=== PATIENT | male | born 1945 | race Caucasian/White ===

== ENCOUNTER → 2023-03-12 | Outpatient (CLI) | payer MEDICARE ==
[~2023-03-12] MED LIST: Aspir 8181 MG; GABA300; IBUP800; SIMV40; VALS80
[2023-03-12 16:27] LABS: BASOPHILS ABSOLUTE AUTO 0.06 K/mm3 (0.00-0.23); BASOPHILS PERCENT AUTO 1 % (0-2); EOSINOPHILS ABSOLUTE AUTO 0.03 K/mm3 (0.00-0.68); EOSINOPHILS PERCENT AUTO 0 % (0-6); Hematocrit 39.5 % (37.0-53.0); Hemoglobin 12.9 g/dL (13.5-17.5); IMMATURE GRAN ABSOLUTE AUTO 0.02 K/mm3 (0.00-0.10); IMMATURE GRAN PERCENT AUTO 0 % (0-1); LYMPHOCYTES ABSOLUTE AUTO 1.23 K/mm3 (0.84-5.20); LYMPHOCYTES PERCENT AUTO 16 % (21-46); MONOCYTES ABSOLUTE AUTO 0.57 K/mm3 (0.16-1.47); MONOCYTES PERCENT AUTO 7 % (4-13); Mean Corpuscular HGB 29.3 pg (26.0-34.0); Mean Corpuscular HGB Conc 32.7 g/dL (31.5-36.5); Mean Corpuscular Volume 90 fL (80-100); Mean Platelet Volume 10.5 fL (9.1-12.4); NEUTROPHILS PERCENT AUTO 76 % (41-73); Platelet Count 250 K/mm3 (150-400); RDW Coefficient Variation 13.6 % (11.7-14.2); RDW Standard Deviation 44.6 fL (35.1-46.3); Red Blood Cell Count 4.41 M/mm3 (4.30-5.90); White Blood Cell Count 7.81 K/mm3 (4.00-11.30)
[2023-03-12 16:43] LABS: Percent Saturation 25.3 % (20.0-50.0); Thyroxine (T4) 7.8 ug/dL (4.5-12.1)
[2023-03-12 17:01] LABS: Albumin, Blood 4.1 g/dL (3.4-5.0); Albumin/Globulin Ratio 1.4 (0.8-1.8); Bilirubin, Total 0.8 mg/dL (0.1-1.0); Bun/Creatinine Ratio 22.6 (12.0-20.0); Calcium, Blood 8.6 mg/dL (8.5-10.1); Creatinine, Blood 0.8 mg/dL (0.60-1.20); Globulin, Blood 2.9 g/dL (2.2-4.0); Phosphorus, Blood 2.5 mg/dL (2.5-4.9); Potassium, Blood 4.1 mmol/L (3.5-5.5); Thyroid Stimulating Hormone 0.988 uIU/mL (0.360-4.800)
== END ==
LOC: LAB SHORT 13:55
PROVIDERS: Internal Medicine Hematology & Oncology
DX: G35 Multiple sclerosis (principal); R53.83 Other fatigue; E53.8 Deficiency of other specified B group vitamins; R51.9 Headache, unspecified; H53.2 Diplopia; D64.9 Anemia, unspecified
CPT/HCPCS: 80053; 82607; 82728; 82746; 83540; 83550; 84100; 84436; 84443; 85025

== ENCOUNTER 2024-07-30 19:46 | Inpatient (IN) | payer MEDICARE ==
[~2024-07-30] VITALS: Ht 177.8 cm; Wt 80.0 kg
[2024-07-30 20:36] LABS: BASOPHILS ABSOLUTE AUTO 0.03 K/mm3 (0.00-0.23); BASOPHILS PERCENT AUTO 0 % (0-2); EOSINOPHILS ABSOLUTE AUTO 0.13 K/mm3 (0.00-0.68); EOSINOPHILS PERCENT AUTO 2 % (0-6); Hematocrit 39.1 % (37.0-53.0); Hemoglobin 12.8 g/dL (13.5-17.5); IMMATURE GRAN ABSOLUTE AUTO 0.02 K/mm3 (0.00-0.10); IMMATURE GRAN PERCENT AUTO 0 % (0-1); LYMPHOCYTES ABSOLUTE AUTO 1.11 K/mm3 (0.84-5.20); LYMPHOCYTES PERCENT AUTO 16 % (21-46); MONOCYTES ABSOLUTE AUTO 0.48 K/mm3 (0.16-1.47); MONOCYTES PERCENT AUTO 7 % (4-13); Mean Corpuscular HGB 29.9 pg (26.0-34.0); Mean Corpuscular HGB Conc 32.7 g/dL (31.5-36.5); Mean Corpuscular Volume 91 fL (80-100); Mean Platelet Volume 9.8 fL (9.1-12.4); NEUTROPHILS ABSOLUTE AUTO 5.03 K/mm3 (1.96-9.15); NEUTROPHILS PERCENT AUTO 74 % (41-73); Platelet Count 222 K/mm3 (150-400); RDW Coefficient Variation 13.5 % (11.7-14.2); RDW Standard Deviation 45.6 fL (35.1-46.3); Red Blood Cell Count 4.28 M/mm3 (4.30-5.90)
[2024-07-30 20:38] LABS: Source, Urine Clean Catch
[2024-07-30 20:41] LABS: Bilirubin, Urine Neg (Neg); Blood, Urine Neg (Neg); Glucose Qualitative, Urine Neg (Neg); Ketones, Urine Neg (Neg); Leukocyte Esterase, Urine Neg (Neg); Nitrite, Urine Neg (Neg); Protein, Urine Neg (Neg); Specific Gravity, Urine 1.005 (1.003-1.022); Urobilinogen, Urine NORM (Normal)
[2024-07-30 20:51] LABS: Appearance, Urine Clear (Clear); Color, Urine Yellow (P-Yellow)
[2024-07-30 20:52] LABS: International Normalized Ratio 0.97; Prothrombin Time Results 10.4 Sec (9.7-11.5)
[2024-07-30 20:59] LABS: Ethanol (Alcohol), Blood, Med <3 mg/dL
[2024-07-30 21:01] LABS: Alanine Aminotransfer (ALT/SGP 26 U/L (12-78); Albumin, Blood 3.4 g/dL (3.4-5.0); Alk Phos 145 U/L (50-136); Anion Gap 7 mmol/L (3-11); Aspartate Aminotrans (AST/SGOT 19 U/L (12-37); Bilirubin, Total 0.4 mg/dL (0.1-1.0); Blood Urea Nitrogen 17 mg/dL (8-24); Bun/Creatinine Ratio 12.7 (12.0-20.0); CO2, Blood 31 mmol/L (21-32); Calcium, Blood 8.6 mg/dL (8.5-10.1); Chloride, Blood 104 mmol/L (98-108); Creatinine, Blood 1.34 mg/dL (0.60-1.20); Globulin, Blood 3.4 g/dL (2.2-4.0); Glomerular Filtration Rate 54 (60-); Glucose, Blood 108 mg/dL (70-99); Potassium, Blood 4.2 mmol/L (3.5-5.5); Sodium, Blood 138 mmol/L (136-145); Total Protein, Blood 6.8 g/dL (6.4-8.2)
[2024-07-30 23:57] VITALS: BP 148/75
[2024-07-31] MEDS ORDERED: GABA100 PO (00:06)
[2024-07-31] MEDS ORDERED: CARBATROL300 M1 PO (00:14)
[2024-07-31] MEDS ORDERED: NS 1,000 ML IV SCH (01:00)
[2024-07-31] MEDS ORDERED: Ondansetron HCl 2 MG / ML 2ML Vial IV PRN (01:00)
[2024-07-31] MEDS ORDERED: FLU VACC TS2024-25(6MOS UP)/PF 45 MCG/0.5 ML SYRINGE IM ONE (01:00)
[2024-07-31] MEDS ORDERED: Clopidogrel Bisulfate 75 MG Tab PO SCH (01:00)
[2024-07-31] MEDS ORDERED: Aspirin 81 MG Chew PO SCH (02:00)
--- NOTE | 2024-07-31 02:43 | NUR ---
PT ADMITTED FROM ED AFTER FAMILY NOTICED INCREASED WEAKNESS IN RIGHT EXTREMS AND INCREASED CONFUSION. PT ORIENTED TO SELF AND . PT ANXIOUS, PULLING AT IV, CLOTH'S, AND TRYING TO GET OOB. PT STATES THAT HE LIVES WITH MOM AND DAD, FAMILY IS THE [employer]. PT INCONTINENT, AND STATING HE HAS TO PEE FREQUENTLY, BLADDER SCAN DONE AND WAS 379ML'S AFTER INCONTINENT VOID X2. PT THEN VOIDED WITH ASSIST 175ML'S. PT PLACED IN RESTRAINTS D/T INTERFERING WITH CARES, AND MEDICAL EQUIPMENT. PT IS NOT SAFE TO BE UP WITHOUT ASSIST, AND SON STATES HE HAS FALLEN 5-6 TIMES IN PAST WEEK. CONSULT CALLED TO PALLATIVE CARE, AWAITING MRI, ECHO, AND PT EVAL.
[2024-07-31 04:31] LABS: U Amphetamine Screen Not Detected; U Barbituate Screen Not Detected; U Benzodiazapine Screen Not Detected; U Buprenorphine Screen Not Detected; U Cannabinoids Screen Not Detected; U Cocaine Screen Not Detected; U Methadone Screen Not Detected; U Methamphetamine Screen Not Detected; U Opiates Screen Not Detected; U Oxycodone Screen Not Detected; U Phencyclidine Screen Not Detected
[2024-07-31 05:30] LABS: BASOPHILS ABSOLUTE AUTO 0.03 K/mm3 (0.00-0.23); BASOPHILS PERCENT AUTO 1 % (0-2); EOSINOPHILS ABSOLUTE AUTO 0.07 K/mm3 (0.00-0.68); EOSINOPHILS PERCENT AUTO 1 % (0-6); Hematocrit 38.7 % (37.0-53.0); Hemoglobin 12.7 g/dL (13.5-17.5); IMMATURE GRAN ABSOLUTE AUTO 0.02 K/mm3 (0.00-0.10); IMMATURE GRAN PERCENT AUTO 0 % (0-1); LYMPHOCYTES ABSOLUTE AUTO 1.04 K/mm3 (0.84-5.20); LYMPHOCYTES PERCENT AUTO 18 % (21-46); MONOCYTES ABSOLUTE AUTO 0.47 K/mm3 (0.16-1.47); MONOCYTES PERCENT AUTO 8 % (4-13); Mean Corpuscular HGB Conc 32.8 g/dL (31.5-36.5); Mean Corpuscular Volume 92 fL (80-100); NEUTROPHILS ABSOLUTE AUTO 4.21 K/mm3 (1.96-9.15); NEUTROPHILS PERCENT AUTO 72 % (41-73); Platelet Count 217 K/mm3 (150-400); RDW Coefficient Variation 13.4 % (11.7-14.2); RDW Standard Deviation 45.2 fL (35.1-46.3); Red Blood Cell Count 4.23 M/mm3 (4.30-5.90); White Blood Cell Count 5.84 K/mm3 (4.00-11.30)
[2024-07-31 06:10] LABS: Albumin, Blood 3.3 g/dL (3.4-5.0); Bilirubin, Total 0.4 mg/dL (0.1-1.0); Bun/Creatinine Ratio 15.7 (12.0-20.0); Calcium, Blood 8.8 mg/dL (8.5-10.1); Creatinine, Blood 1.08 mg/dL (0.60-1.20); Globulin, Blood 3.4 g/dL (2.2-4.0); Potassium, Blood 3.9 mmol/L (3.5-5.5); Total Protein, Blood 6.7 g/dL (6.4-8.2)
[2024-07-31 07:23] VITALS: BP 141/74
[2024-07-31] MEDS ORDERED: Gabapentin 400 MG Cap PO SCH (09:00)
[2024-07-31] MEDS ORDERED: Enoxaparin 40 MG/0.4 ML SYR SC SCH (09:00)
--- NOTE | 2024-07-31 09:17 | NUR ---
SPOKE WITH PT'S SONTREVOR VIA PHONE THIS MORNING. MRI SCREENING FORM REVIEWED AND COMPLETED BY THIS PC RN. PRIMARY RN TO FAX MRI SCREENING FORM TO IMAGING. PT HAD A HEAD MRI IN SEP OF THIS YEAR. SON REPORTS PT HAS MS AND DENIES HX OF STROKE. HE STATES PT'S LEFT SIDED WEAKNESS IS D/T MS. PT SUFFERS FROM SHOOTING NERVE PAIN FROM HIS LEGS UP HIS SPINE. NERVE PAIN IS BEING TX WITH GABAPENTIN. GABAPENTIN RX DOSE RECENTLY INCREASED FROM 300 MG BID TO 400 MG BID. SON REPORTS MILD IMPROVEMENT WITH DOSE INCREASE. AT BASE LINE PT EATS A REGULAR TEXTURE DIET WITH THIN LIQUIDS W/O DIFFICULTY. PRIMARY RN REPORTS PT WAS ABLE TO TAKE ORAL MEDICATIONS WITH WATER THIS MORNING. PROVIDER TO PLACE DIET ORDER. CODE STATUS: SON STATES, "HE WOULD NOT WANT SOMEONE PUSHING ON HIS CHEST. HE DOESN'T WANT BROKEN RIBS. AND HE WOULDN'T WANT TO BE ON A MACHINE." PROVIDER TO PLACE DNR ORDER. PRIMARY RN REPORTS PT HAS PULLED OUT IV'S AND TRYING TO GET OUT OF BED. HE WAS PLACED IN SOFT WRIST RESTRAINTS AND MITTENS OVER NIGHT. THIS PC RN ENCOURAGED SON TO COME SEE PT AT BEDSIDE IN AN ATTEMPT TO RE-ORIENT AND RE-DIRECT JYOTI. PT IS ALERT AND ORIENTED TO SELF ONLY. HE KNOWS HIS NAME, NOT HIS . FUTURE GOALS OF CARE CONVERSATION ANTICIPATED AFTER DIAGNOSTIC STUDIES COMPLETED. DR. KEARNEY REPORTS SHE WILL REVIEW PT'S [facility] CHART FOR MEDICAL HX. PRIMARY RN UPDATED. PHONE NUMBER FOR SONTREVOR IS [phone]. COMMUNICATION IS GOING THROUGH BOTH SONS PT'S SPOUSE HAS DEMENTIA.
[2024-07-31] MEDS ORDERED: NS 250 ML IV PRN (13:30)
[2024-07-31 17:40] VITALS: BP 125/59
--- NOTE | 2024-07-31 18:06 | NUR ---
SHIFT SUMMARY PT CONT LEVEL OF CARE. PT NOTED TO BE A&O TO SELF AND FAMILY THIS SHIFT. PT NOTED TO SLEEP ALMOST THE ENTIRE SHIFT PT DIDNT SLEEP AT ALL LAST NIGHT. PT WAS TAKEN OUT OF RESTRAINTS TO EAT THIS SHIFT WHILE FAMILY WAS PRESENT IN ROOM AND TO BE TAKEN DOWN TO MRI WITH NO ATTEMPTS TO PULL AT LINES. PT NOTED TO BE REDIRECTABLE THIS SHIFT AND FOLLOW COMMANDS. OLVERA CONT TO REMAIN PATENT AND DRAINING YELLOW URINE.
[2024-07-31 19:47] VITALS: BP 113/64
[2024-08-01 03:11] VITALS: BP 133/68
--- NOTE | 2024-08-01 04:21 | NUR ---
SHIFT SUMMARY PT IS ALERT AND ORIENTED TO SELF AND FAMILY. NO ACUTE CHANGED THROUGHOUT THIS SHIFT. PT ABLE TO SLEEP THROUGHOUT THE SOME OF THE NIGHT. SOFT RESTRAINTS IN PLACE D/T PULLING AT LINES AND CORDS DESPITE VERBAL REMINDERS TO NOT PULL ON THE LINES/CORDS. OLVERA IN PLACE DRAINING CLEAR, YELLOW URINE. ON RA. ON TELE RUNNING NORMAL SINUS RYTHYM IN THE 'S.
[2024-08-01 05:40] LABS: BASOPHILS ABSOLUTE AUTO 0.04 K/mm3 (0.00-0.23); BASOPHILS PERCENT AUTO 1 % (0-2); EOSINOPHILS ABSOLUTE AUTO 0.09 K/mm3 (0.00-0.68); EOSINOPHILS PERCENT AUTO 1 % (0-6); Hematocrit 38.6 % (37.0-53.0); Hemoglobin 12.7 g/dL (13.5-17.5); IMMATURE GRAN ABSOLUTE AUTO 0.03 K/mm3 (0.00-0.10); IMMATURE GRAN PERCENT AUTO 0 % (0-1); LYMPHOCYTES ABSOLUTE AUTO 0.98 K/mm3 (0.84-5.20); LYMPHOCYTES PERCENT AUTO 13 % (21-46); MONOCYTES ABSOLUTE AUTO 0.56 K/mm3 (0.16-1.47); MONOCYTES PERCENT AUTO 7 % (4-13); Mean Corpuscular HGB 29.7 pg (26.0-34.0); Mean Corpuscular HGB Conc 32.9 g/dL (31.5-36.5); Mean Corpuscular Volume 90 fL (80-100); Mean Platelet Volume 9.6 fL (9.1-12.4); NEUTROPHILS ABSOLUTE AUTO 5.89 K/mm3 (1.96-9.15); NEUTROPHILS PERCENT AUTO 78 % (41-73); Platelet Count 210 K/mm3 (150-400); RDW Coefficient Variation 13.3 % (11.7-14.2); RDW Standard Deviation 43.9 fL (35.1-46.3); Red Blood Cell Count 4.27 M/mm3 (4.30-5.90); White Blood Cell Count 7.59 K/mm3 (4.00-11.30)
[2024-08-01] MEDS ORDERED: Pantoprazole Sodium 40 MG Tab PO SCH (06:00)
[2024-08-01 06:13] LABS: Anion Gap 10 mmol/L (3-11); Blood Urea Nitrogen 10 mg/dL (8-24); Bun/Creatinine Ratio 13.9 (12.0-20.0); CHOL/HDL RATIO 3.6; CO2, Blood 26 mmol/L (21-32); Calcium, Blood 8.6 mg/dL (8.5-10.1); Chloride, Blood 103 mmol/L (98-108); Cholesterol 212 mg/dL (50-200); Creatinine, Blood 0.72 mg/dL (0.60-1.20); Glomerular Filtration Rate 94 (60-); Glucose, Blood 95 mg/dL (70-99); HDL Cholesterol 59 mg/dL (>39); LDL/HDL RATIO 2.3; Low Density Lipoprotein Chol 135 mg/dL (0-110); Sodium, Blood 135 mmol/L (136-145); Triglycerides 88 mg/dL (30-160); Very Low Density Lipoprot Chol 17 mg/dL (6-32)
[2024-08-01 07:33] VITALS: BP 133/74
--- NOTE | 2024-08-01 11:26 | NUR ---
CATH DC PER PHYSICIAN REMOVED OLVERA AT 1125.
[2024-08-01 15:14] VITALS: BP 123/67
--- NOTE | 2024-08-01 17:54 | NUR ---
SHIFT SUMMARY PT CONT LEVEL OF CARE. PT NOTED TO BE MORE ALERT THIS SHIFT WAS A&OX3 LATER ON IN THE SHIFT. RESTRAINTS AND OLVERA WERE DC. PT NOTED TO BE INCONT OF BLADDER THIS SHIFT AND REDIRECTABLE. PT WORKED WITH THERAPY THIS SHIFT WHOM STATED PT CAN BE ASSIST X1 WITH FWW FOR TRANSFERES TO CHAIR AND RESTROOM.
[2024-08-01 20:19] VITALS: BP 129/88
[2024-08-02 04:22] VITALS: BP 141/78
--- NOTE | 2024-08-02 04:27 | NUR ---
SHIFT SUMMARY PT IS A/O TO SELF, PERSON, AND CURRENT SITUATION. NO ACUTE CHANGES THROUGHOUT THIS SHIFT. PT IS IMPULISVE AND WILL ATTEMPT TO GET OUT OF BED, BED ALARM REMAINS ON. PT IS CONTNENT/INCONTNENT OF BOWELS AND BLADDER, WILL OCCASIONALLY USE THE URINAL. PT FREQUENTLY ATTEMPTS TO PULL AT LINES/CORDS, GOWN, ATTENDS. PT IS A 1 PERSON ASSIST WITH FWW AND GAIT BELT TO THE CHAIR. MEDS WHOLE IN APPLESAUCE.
[2024-08-02 07:36] VITALS: BP 124/69
[2024-08-02] MEDS ORDERED: Atorvastatin 40 MG Tab PO SCH (09:00)
[2024-08-02 09:24] LABS: BASOPHILS ABSOLUTE AUTO 0.04 K/mm3 (0.00-0.23); BASOPHILS PERCENT AUTO 1 % (0-2); EOSINOPHILS ABSOLUTE AUTO 0.11 K/mm3 (0.00-0.68); EOSINOPHILS PERCENT AUTO 2 % (0-6); Hematocrit 39.7 % (37.0-53.0); Hemoglobin 13.5 g/dL (13.5-17.5); IMMATURE GRAN ABSOLUTE AUTO 0.01 K/mm3 (0.00-0.10); IMMATURE GRAN PERCENT AUTO 0 % (0-1); LYMPHOCYTES ABSOLUTE AUTO 0.99 K/mm3 (0.84-5.20); LYMPHOCYTES PERCENT AUTO 17 % (21-46); MONOCYTES ABSOLUTE AUTO 0.51 K/mm3 (0.16-1.47); MONOCYTES PERCENT AUTO 9 % (4-13); Mean Corpuscular HGB 29.8 pg (26.0-34.0); Mean Corpuscular Volume 88 fL (80-100); Mean Platelet Volume 9.3 fL (9.1-12.4); NEUTROPHILS ABSOLUTE AUTO 4.25 K/mm3 (1.96-9.15); NEUTROPHILS PERCENT AUTO 72 % (41-73); Platelet Count 231 K/mm3 (150-400); RDW Coefficient Variation 13.1 % (11.7-14.2); RDW Standard Deviation 42.4 fL (35.1-46.3); Red Blood Cell Count 4.53 M/mm3 (4.30-5.90); White Blood Cell Count 5.91 K/mm3 (4.00-11.30)
[2024-08-02 09:49] LABS: Bun/Creatinine Ratio 15.2 (12.0-20.0); Calcium, Blood 8.8 mg/dL (8.5-10.1); Creatinine, Blood 0.79 mg/dL (0.60-1.20)
[2024-08-02 15:10] VITALS: BP 145/70
--- NOTE | 2024-08-02 19:10 | NUR ---
SHIFT SUMMARY PATIENT A/OX2. MENTATION IS IMPROVING. FAMILY WAS AT BEDSIDE T/O MOST OF THE DAY. TELEMETRY WAS D/C'D. PLAN TO SEND TO SNF FOR MORE THERAPY PRIOR TO GOING HOME. CASE MANAGEMENT FOLLOWING. UP TO CHAIR FOR DINNER FOR ABOUT 3 HOURS PRIOR TO GETTING BACK IN BED. CONT/INCONT.
[2024-08-02 20:03] VITALS: BP 120/73
[2024-08-03] MEDS ORDERED: Melatonin 5 MG Tablet PO SCH (00:25)
--- NOTE | 2024-08-03 04:37 | NUR ---
NOC SUMMARY- PT HAS RESTED FOR MOST OF SHIFT. PT BRIEF CHANGED NEEDED. PT REPOSITIONED Q2. PT HAS NO COMPLAINTS. CALL LIGHT IN REACH AND BED ALARM ON.
[2024-08-03 07:25] VITALS: BP 130/77
[2024-08-03 15:02] VITALS: BP 127/67
[2024-08-03] MEDS ORDERED: QUEtiapine Fumarate 50 MG TAB PO ONE (16:00)
--- NOTE | 2024-08-03 16:25 | NUR ---
PATIENT INCREASINGLY AGITATED. CALL TO DR. KEARNEY REQUESTING SOMETHIN TO HELP WITH HIS ANXIETY/SUNDOWNING. ONE-TIME ORDER FOR QUETIAPINE 50MG ADMINISTERED PER DR. KEARNEY.
--- NOTE | 2024-08-03 18:24 | NUR ---
END OF SHIFT SUMMARY: A&Ox1-2; KNOWS FAMILY BY FACE AND RELATION BUT UNABLE TO REMEMBER NAMES.. PLEASANT AND COOPERATIVE WITH CARE THIS MORNING, BUT BECAME INCREASINGLY AGITATED THROUGHOUT THE DAY, SETTING OFF THE BED ALARM MULTIPLE TIMES, STATING, I GOTTA MOVE. I M GETTING OUT OF HERE . CALL TO DR KEARNEY; ONE-TIME ORDER FOR QUETIAPINE 50MG PO WHICH SEEMED TO RELAX HIM FOR ABOUT TWO HOURS, BUT HE HAS BECOME INCREASINGLY AGITATED AGAIN STARTING AROUND 1730.. DOES NOT UTILIZE CALL LIGHT. 1PA c FWW; WALKED WITH PT TODAY. INCONTINENT x2. TOOK MEDS WHOLE WITH FLUIDS. MULTIPLE FAMILY MEMBERS IN TODAY. PT RECOMMENDING SNF; NO ACCEPTING FACILITY AT THIS TIME. BED IN LOWEST POSITION, CALL LIGHT WITHIN REACH, ALL NEEDS MET. REPORT TO ONCOMING NURSE.
--- NOTE | 2024-08-03 18:39 | NUR ---
PATIENT CONTIUES TO TRY AND GET OUT OF BED STATING, "I GOTTA GO". THIS RN HAS BEEN IN HIS ROOM MULTIPLE TIMES IN THE LAST THIRTY MINUTES TRYING TO REDIRECT. CHARGE NOTIFIED THAT 1:1 SITTER MAY BE NEEDED FOR PATIENT SAFETY.
[2024-08-03 19:10] VITALS: BP 114/63
[2024-08-04 07:21] VITALS: BP 143/72
[2024-08-04 12:00] LABS: CORONAVIRUS COVID-19 AG Negative (NEGATIVE); INFLUENZA A AG Negative (NEGATIVE); INFLUENZA B AG Negative (NEGATIVE)
[2024-08-04] MEDS ORDERED: CLOP75 PO (12:06)
[2024-08-04] MEDS ORDERED: ASPI81CH PO (12:06)
[2024-08-04] MEDS ORDERED: ATOR80 PO (12:06)
[2024-08-04] MEDS ORDERED: MELATONIN5 M1 PO (12:07)
[2024-08-04] MEDS ORDERED: PANT40 PO (12:09)
--- NOTE | 2024-08-04 12:35 | NUR ---
ATTEMPTED TO GIVE REPORT TO BASIL GEORGE DIGESTER, NO ANSWER, ASKED FOR A RETURN PHONE CALL
--- NOTE | 2024-08-04 14:25 | NUR ---
pt discharged to [facility]. report given to rn. family at bedside for discharge
== END 2024-08-04 13:37 | DRG 69 ==
LOC: ER 19:46 → MEDS 22:31
PROVIDERS: Family Medicine; Student in an Organized Health Care Education/Training Program; ADMIT Internal Medicine
DX: G45.9 Transient cerebral ischemic attack, unspecified (principal); I69.954 Hemiplegia and hemiparesis following unspecified cerebrovascular disease affecting left non-dominant side; N17.9 Acute kidney failure, unspecified; G93.49 Other encephalopathy; G35 Multiple sclerosis; E78.5 Hyperlipidemia, unspecified; I10 Essential (primary) hypertension; Z79.82 Long term (current) use of aspirin; E86.0 Dehydration; Z87.81 Personal history of (healed) traumatic fracture; Z87.891 Personal history of nicotine dependence
CPT/HCPCS: 36415; 70450; 70496; 70498; 70551; 71045; 80048; 80053; 80061; 80320; 81003; 85025; 85610; 85730; 87428-QW; 93005; 93010; 93306; 97110; 97116; 97161; 97530; 99285-25; A9270; J1650; J7030; Q9967

== ENCOUNTER 2024-08-27 12:50 | Inpatient (IN) | payer MEDICARE ==
[~2024-08-27] VITALS: Ht 177.8 cm; Wt 79.7 kg
[~2024-08-27 12:50] MED LIST changes: +ASPI81CH PO; +ATOR80 PO; +CARBATROL300 M1 PO; +CLOP75 PO; +GABA100 PO; +MELATONIN5 M1 PO; +PANT40 PO
[2024-08-27 14:25] LABS: BASOPHILS ABSOLUTE AUTO 0.02 K/mm3 (0.00-0.23); BASOPHILS PERCENT AUTO 0 % (0-2); EOSINOPHILS ABSOLUTE AUTO 0.01 K/mm3 (0.00-0.68); EOSINOPHILS PERCENT AUTO 0 % (0-6); Hematocrit 37.7 % (37.0-53.0); Hemoglobin 12.4 g/dL (13.5-17.5); IMMATURE GRAN ABSOLUTE AUTO 0.04 K/mm3 (0.00-0.10); IMMATURE GRAN PERCENT AUTO 1 % (0-1); LYMPHOCYTES ABSOLUTE AUTO 0.13 K/mm3 (0.84-5.20); LYMPHOCYTES PERCENT AUTO 2 % (21-46); MONOCYTES ABSOLUTE AUTO 0.36 K/mm3 (0.16-1.47); MONOCYTES PERCENT AUTO 4 % (4-13); Mean Corpuscular HGB 29.7 pg (26.0-34.0); Mean Corpuscular HGB Conc 32.9 g/dL (31.5-36.5); Mean Corpuscular Volume 90 fL (80-100); Mean Platelet Volume 9.5 fL (9.1-12.4); NEUTROPHILS ABSOLUTE AUTO 7.76 K/mm3 (1.96-9.15); NEUTROPHILS PERCENT AUTO 93 % (41-73); Platelet Count 205 K/mm3 (150-400); RDW Coefficient Variation 13.9 % (11.7-14.2); RDW Standard Deviation 46.4 fL (35.1-46.3); Red Blood Cell Count 4.18 M/mm3 (4.30-5.90); White Blood Cell Count 8.32 K/mm3 (4.00-11.30)
[2024-08-27 14:43] LABS: Alanine Aminotransfer (ALT/SGP 30 U/L (12-78); Albumin, Blood 3.6 g/dL (3.4-5.0); Albumin/Globulin Ratio 1.1 (0.8-1.8); Alk Phos 129 U/L (50-136); Anion Gap 8 mmol/L (3-11); Aspartate Aminotrans (AST/SGOT 28 U/L (12-37); Bilirubin, Total 0.4 mg/dL (0.1-1.0); Blood Urea Nitrogen 12 mg/dL (8-24); Bun/Creatinine Ratio 17.1 (12.0-20.0); CO2, Blood 28 mmol/L (21-32); Calcium, Blood 8.3 mg/dL (8.5-10.1); Chloride, Blood 107 mmol/L (98-108); Ethanol (Alcohol), Blood, Med <3 mg/dL; Globulin, Blood 3.3 g/dL (2.2-4.0); Glomerular Filtration Rate 94 (60-); Glucose, Blood 115 mg/dL (70-99); Potassium, Blood 3.7 mmol/L (3.5-5.5); Sodium, Blood 139 mmol/L (136-145); Total Protein, Blood 6.9 g/dL (6.4-8.2)
[2024-08-27] MEDS ORDERED: Acetaminophen 500 MG Tab PO ONE (15:00)
[2024-08-27] MEDS ORDERED: NS 1,000 ML IV SCH (15:00)
[2024-08-27] MEDS ORDERED: CefTRIAXone Sodium 2,000 MG in NS 100 ML IV ONE (15:00)
[2024-08-27] MEDS ORDERED: Ketorolac Tromethamine 15mg Vial IV ONE (15:00)
[2024-08-27 15:12] LABS: Source, Urine Voided
[2024-08-27 15:16] LABS: Magnesium, Blood 1.8 mg/dL (1.6-2.4); Phosphorus, Blood 2.7 mg/dL (2.5-4.9)
[2024-08-27 15:17] LABS: Appearance, Urine Clear (Clear); Bilirubin, Urine Neg (Neg); Blood, Urine 2+ (Neg); Color, Urine Yellow (P-Yellow); Glucose Qualitative, Urine Neg (Neg); Ketones, Urine Neg (Neg); Leukocyte Esterase, Urine Neg (Neg); Nitrite, Urine Neg (Neg); Protein, Urine Neg (Neg); Urobilinogen, Urine NORM (Normal)
[2024-08-27] MEDS ORDERED: Acetaminophen 500 MG Tab ONE (15:20)
[2024-08-27 15:25] LABS: Bacteria Few /hpf; Squamous Epithelial Cells Rare /hpf (Few); White Blood Cells, Urine 0-2 /hpf (0-5)
[2024-08-27 15:27] LABS: U Amphetamine Screen Not Detected; U Barbituate Screen Not Detected; U Benzodiazapine Screen Not Detected; U Buprenorphine Screen Not Detected; U Cannabinoids Screen Not Detected; U Cocaine Screen Not Detected; U Methadone Screen Not Detected; U Methamphetamine Screen Not Detected; U Opiates Screen Not Detected; U Oxycodone Screen Not Detected; U Phencyclidine Screen Not Detected
[2024-08-27 16:32] LABS: Influenza B, PCR NEGATIVE (NEGATIVE); Resp Syncytial Virus, PCR NEGATIVE (NEGATIVE); SARS-Cov-2 (COVID-19) PCR, MMC NEGATIVE (NEGATIVE)
[2024-08-27 16:37] LABS: Influenza A, PCR POSITIVE (NEGATIVE)
[2024-08-27] MEDS ORDERED: Oseltamivir Phosphate 75 MG Cap PO ONE (17:30)
[2024-08-27] MEDS ORDERED: Ondansetron HCl 2 MG / ML 2ML Vial IV PRN (18:05)
[2024-08-27] MEDS ORDERED: FLU VACC TS2024-25(6MOS UP)/PF 45 MCG/0.5 ML SYRINGE IM ONE (18:05)
[2024-08-27] MEDS ORDERED: NS 1,000 ML IV ONE (18:45)
[2024-08-27] MEDS ORDERED: Enoxaparin 40 MG/0.4 ML SYR SC SCH (19:00)
[2024-08-27 22:24] VITALS: BP 153/75
[2024-08-27] MEDS ORDERED: Acetaminophen 325 MG TABLET PO PRN (23:25)
[2024-08-27] MEDS ORDERED: Acetaminophen 650 MG Supp PR PRN (23:40)
[2024-08-28] MEDS ORDERED: MIRALAX17 GM PO (01:54)
[2024-08-28] MEDS ORDERED: PARO10 PO (01:55)
[2024-08-28] MEDS ORDERED: BISA10S PR (01:56)
[2024-08-28] MEDS ORDERED: SENNA LAXATIVE8.6 MG PO (02:01)
[2024-08-28 02:46] VITALS: BP 120/53
[2024-08-28 06:03] LABS: BASOPHILS ABSOLUTE AUTO 0.01 K/mm3 (0.00-0.23); BASOPHILS PERCENT AUTO 0 % (0-2); EOSINOPHILS PERCENT AUTO 0 % (0-6); Hematocrit 33.4 % (37.0-53.0); IMMATURE GRAN ABSOLUTE AUTO 0.03 K/mm3 (0.00-0.10); IMMATURE GRAN PERCENT AUTO 0 % (0-1); LYMPHOCYTES ABSOLUTE AUTO 0.34 K/mm3 (0.84-5.20); LYMPHOCYTES PERCENT AUTO 4 % (21-46); MONOCYTES ABSOLUTE AUTO 0.49 K/mm3 (0.16-1.47); MONOCYTES PERCENT AUTO 6 % (4-13); Mean Corpuscular HGB 30.3 pg (26.0-34.0); Mean Corpuscular HGB Conc 32.9 g/dL (31.5-36.5); Mean Corpuscular Volume 92 fL (80-100); Mean Platelet Volume 10.4 fL (9.1-12.4); NEUTROPHILS ABSOLUTE AUTO 7.03 K/mm3 (1.96-9.15); NEUTROPHILS PERCENT AUTO 89 % (41-73); Platelet Count 142 K/mm3 (150-400); RDW Coefficient Variation 14.4 % (11.7-14.2); RDW Standard Deviation 48.4 fL (35.1-46.3); Red Blood Cell Count 3.63 M/mm3 (4.30-5.90)
[2024-08-28 06:31] LABS: Albumin, Blood 2.9 g/dL (3.4-5.0); Albumin/Globulin Ratio 1.1 (0.8-1.8); Bilirubin, Total 0.3 mg/dL (0.1-1.0); Bun/Creatinine Ratio 14.9 (12.0-20.0); Calcium, Blood 7.9 mg/dL (8.5-10.1); Creatinine, Blood 0.74 mg/dL (0.60-1.20); Globulin, Blood 2.7 g/dL (2.2-4.0); Potassium, Blood 3.3 mmol/L (3.5-5.5); Total Protein, Blood 5.6 g/dL (6.4-8.2)
--- NOTE | 2024-08-28 07:20 | NUR ---
PROFESSOR OF GEOGRAPHY SUMMARY PT HAS BEEN LETHARGIC, CONFUSED, DIFFICULT TO ASSESS HE DOESNT APPEAR MOTIVATED TO PARTICIPATE IN ASSESSMENTS. HE WILL SAY SHORT ONE WORD ANSWERS BUT IS NOT TALKATIVE AND APPEARS EXTREMELY WEAK BILATERALY, AND HIS L SIDE IS WEAKER THAN HIS RIGHT. HE IS HAVING LOW-GRADE FEVERS, IS REQUIRING 2L TO MAINTAIN SATS, AND DOES NOT APPEAR SAFE TO SWALLOW PILLS HE CANNOT STAY AWAKE. PT WAS TURNED EVERY 2 HOURS, HAS HAD NS RUNNING AT 75CC/HR ALL NIGHT. COMPLETED MED [facility] WITH THE HELP OF NURSE AT [facility]. PER REPORT, PT WAS RETAINING URINE IN THE EMERGENCY ROOM AND UNABLE TO URINATE SO WHEN THE NURSE NEEDED TO STRAIGHT CATH THE PT, THE MD TOLD HER TO JUST GO AHEAD AND PLACE A OLVERA. PTS CODE STATUS NEEDS TO BE ADDRESSED WITH FAMILY TODAY.
[2024-08-28 07:26] VITALS: BP 99/50
[2024-08-28] MEDS ORDERED: Albuterol 2.5 MG/3 ML VIAL INH PRN (08:05)
[2024-08-28] MEDS ORDERED: Oseltamivir Phosphate 75 MG Cap PO SCH (09:00)
[2024-08-28] MEDS ORDERED: Potassium Chloride 20 MEQ TabCR PO ONE (09:25)
[2024-08-28 14:53] VITALS: BP 109/60
--- NOTE | 2024-08-28 16:31 | NUR ---
PT IS AOX1 AND STARTED SHIFT VERY SOMULENT AND WAS NOT SAFE TO FEED. PT STARTED TO REALLY WAKE UP LATE MORNING AND STARTED TO PULL EVERYTHING OFF. UNABLE TO REDIRECT, SEE ORDERS. PT IS TURNED Q2 TELE DC'D BARREL PLANER HAS NOT SEEN ANY EVENTS AND PT IS NOT LEAVING ON. PT IS DNR PER SON AND DR KEARNEY WAS NOTIFIED. PT CONINTUES ON 2L O2 WILL CONTINUE TO MONITOR CLOSELY.
[2024-08-28] MEDS ORDERED: Polyethylene Glycol 3350 17 gm PO PRN (17:25)
[2024-08-28] MEDS ORDERED: Bisacodyl 10 MG Supp PR PRN (17:25)
[2024-08-28] MEDS ORDERED: Sennosides 8.6 MG Tab PO PRN (17:35)
[2024-08-28 20:53] VITALS: BP 113/53
[2024-08-28] MEDS ORDERED: Melatonin 5 MG Tablet PO SCH (21:00)
[2024-08-28] MEDS ORDERED: Gabapentin 400 MG Cap PO SCH (21:00)
[2024-08-28] MEDS ORDERED: NS 1,000 ML IV ONE (21:20)
[2024-08-29 03:53] VITALS: BP 119/58
--- NOTE | 2024-08-29 04:41 | NUR ---
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 PT VERBAL WITH SHORT SENTENCES. SOFT WRIST RESTRAINTS IN PLACE ORDERED FOR PULLING AT LINES. PT CONINTUES ON 2L O2 VIA NC TO MAINTAIN SATS. OLVERA PATENT WITH TEA COLOR URNIE, NOTED HEMATURIA. NEW ORDER REC'D FOR IV FLUIDS: NS 1000ML AT 75ML/HR. INCONTINENT LOOSE BM X1 WITH LINEN CHANGE. CALL LIGHT IN REACH. BED IN LOWEST POSITION. CARES CONTINUE ORDERED.
[2024-08-29 05:18] LABS: BASOPHILS ABSOLUTE AUTO 0.02 K/mm3 (0.00-0.23); BASOPHILS PERCENT AUTO 0 % (0-2); EOSINOPHILS PERCENT AUTO 0 % (0-6); Hematocrit 33.5 % (37.0-53.0); Hemoglobin 10.9 g/dL (13.5-17.5); IMMATURE GRAN ABSOLUTE AUTO 0.01 K/mm3 (0.00-0.10); IMMATURE GRAN PERCENT AUTO 0 % (0-1); LYMPHOCYTES ABSOLUTE AUTO 0.64 K/mm3 (0.84-5.20); LYMPHOCYTES PERCENT AUTO 12 % (21-46); MONOCYTES ABSOLUTE AUTO 0.39 K/mm3 (0.16-1.47); MONOCYTES PERCENT AUTO 7 % (4-13); Mean Corpuscular HGB 29.7 pg (26.0-34.0); Mean Corpuscular HGB Conc 32.5 g/dL (31.5-36.5); Mean Corpuscular Volume 91 fL (80-100); Mean Platelet Volume 10.2 fL (9.1-12.4); NEUTROPHILS ABSOLUTE AUTO 4.44 K/mm3 (1.96-9.15); NEUTROPHILS PERCENT AUTO 81 % (41-73); Platelet Count 143 K/mm3 (150-400); RDW Coefficient Variation 14.5 % (11.7-14.2); RDW Standard Deviation 48.5 fL (35.1-46.3); Red Blood Cell Count 3.67 M/mm3 (4.30-5.90)
[2024-08-29 05:45] LABS: Bun/Creatinine Ratio 18.5 (12.0-20.0); Calcium, Blood 7.7 mg/dL (8.5-10.1); Creatinine, Blood 0.7 mg/dL (0.60-1.20); Potassium, Blood 3.5 mmol/L (3.5-5.5)
[2024-08-29] MEDS ORDERED: Pantoprazole Sodium 40 MG Tab PO SCH (06:00)
[2024-08-29 08:21] VITALS: BP 107/56
[2024-08-29] MEDS ORDERED: Aspirin 81 MG Chew PO SCH (09:00)
[2024-08-29] MEDS ORDERED: Atorvastatin 40 MG Tab PO SCH (09:00)
[2024-08-29] MEDS ORDERED: PARoxetine HCl 10 MG Tab PO SCH (09:00)
[2024-08-29 14:58] VITALS: BP 110/59
--- NOTE | 2024-08-29 18:02 | NUR ---
PT ALERT, ORIENTED TO SELF AND PLACE ONLY. PULLED IV THIS MORNING DESPITE SOFT WRIST RESTRAINTS. RESTRAINTS REMAIN IN PLACE THROUGHOUT SHIFT D/T PULLING LINES. PT ON 2L O2 VIA NC TO MAINTAIN SATS IN 90S. DOES NOT COMPLAIN OF PAIN. Q 2 TURNS. PLEASANTLY CONFUSED. WORKED WITH PT TODAY AND WAS ABLE TO AMBULATE TO BATHROOM, NO BM THIS SHIFT. OLVERA REMAINS IN PLACE, DRAINING TEA COLORED URINE WITH HEMATURIA.
[2024-08-29 20:19] VITALS: BP 110/52
[2024-08-30 05:26] VITALS: BP 140/85
[2024-08-30 07:14] LABS: BASOPHILS ABSOLUTE AUTO 0.01 K/mm3 (0.00-0.23); BASOPHILS PERCENT AUTO 0 % (0-2); EOSINOPHILS ABSOLUTE AUTO 0.02 K/mm3 (0.00-0.68); EOSINOPHILS PERCENT AUTO 1 % (0-6); Hematocrit 34.2 % (37.0-53.0); Hemoglobin 11.3 g/dL (13.5-17.5); IMMATURE GRAN PERCENT AUTO 0 % (0-1); LYMPHOCYTES ABSOLUTE AUTO 0.76 K/mm3 (0.84-5.20); LYMPHOCYTES PERCENT AUTO 18 % (21-46); MONOCYTES ABSOLUTE AUTO 0.44 K/mm3 (0.16-1.47); MONOCYTES PERCENT AUTO 10 % (4-13); Mean Corpuscular HGB 29.8 pg (26.0-34.0); Mean Corpuscular Volume 90 fL (80-100); Mean Platelet Volume 10.7 fL (9.1-12.4); NEUTROPHILS PERCENT AUTO 72 % (41-73); Platelet Count 142 K/mm3 (150-400); RDW Coefficient Variation 14.1 % (11.7-14.2); Red Blood Cell Count 3.79 M/mm3 (4.30-5.90); White Blood Cell Count 4.33 K/mm3 (4.00-11.30)
[2024-08-30 07:33] LABS: Albumin, Blood 2.7 g/dL (3.4-5.0); Anion Gap 11 mmol/L (3-11); Blood Urea Nitrogen 10 mg/dL (8-24); Bun/Creatinine Ratio 18.1 (12.0-20.0); CO2, Blood 26 mmol/L (21-32); Calcium, Blood 8.1 mg/dL (8.5-10.1); Chloride, Blood 107 mmol/L (98-108); Creatinine, Blood 0.55 mg/dL (0.60-1.20); Glomerular Filtration Rate 101 (60-); Glucose, Blood 86 mg/dL (70-99); Magnesium, Blood 1.8 mg/dL (1.6-2.4); Phosphorus, Blood 2.5 mg/dL (2.5-4.9); Potassium, Blood 3.4 mmol/L (3.5-5.5); Sodium, Blood 141 mmol/L (136-145)
[2024-08-30 08:08] VITALS: BP 133/67
[2024-08-30 14:59] VITALS: BP 128/65
--- NOTE | 2024-08-30 16:26 | NUR ---
NO ACUTE CHANGES THIS SHIFT, PT DEMONSTRATING ABILITY TO REMOVE RESTRAINTS, SOFT RESTRAINTS D/C 0800 08/30/24. PT/OT WORKED WITH PT TODAY. OLVERA CATH IN PLACE DRAINING BURGANDY URINE. Q 2HR TURN. PT DECLINED LUNCH STATING NO APPETITE. COG EVAL COMPLETED AND IN CHART. ALERT AND ORIENTED X2. 2L NC ONE PERSON ASSIST WITH FWW. PT REQUIRES DIRECTION WITH MOVEMENT.
[2024-08-30 20:55] VITALS: BP 123/70
[2024-08-31 05:53] VITALS: BP 140/83
--- NOTE | 2024-08-31 07:09 | NUR ---
SHORT ORDER COOK SUMMARY PT HAD A MUCH BETTER NIGHT IN COMPARISON TO THE LAST 2 NIGHTS. HE IS MUCH MORE ORIENTED/LESS CONFUSED, MORE ALERT AND TALKATIVE, LESS WEAK, MORE WILLING TO EAT/DRINK, AND HAS STOPPED PULLING AT HIS LINES. PT IS STILL REQUIRING OXYGEN. DISCUSSED WITH DAY SHIFT RN TODAY THAT PT WILL PROBABLY NEED HIS OLVERA REMOVED FOR A VOIDING TRIAL.
[2024-08-31 08:04] VITALS: BP 131/65
[2024-08-31] MEDS ORDERED: Potassium Chloride 20 MEQ/15 ML UDC PO ONE (13:00)
[2024-08-31 15:14] VITALS: BP 106/56
--- NOTE | 2024-08-31 16:51 | NUR ---
Pt continues to refuse food and fluids. Spoke with pt's son Tuan, who states both his mom and dad have dementia, and are each other's primary decision-makers, with son Tuan as 2nd. After consulting with SW, informed Tuan he can use a letter from each parent's PCP, then should have no problem making legal decisions. Unfortunately, given the patient's current nutritional status, he is becoming more appropriate for hospice each day. Tuan states he is not suprised by this information, and requests more information on placement options for both mom and dad. Plan to gather info for Tuan tomorrow, he verbalizes relief for the support. Will request louis Dickerson come meet with Dr. العراقي tomorrow.
--- NOTE | 2024-08-31 17:39 | NUR ---
NO ACUTE CHANGES THIS SHIFT. PT IS CONFUSED, ORIENTED TO SELF AND [place], REQUIRES DIRECTION AMBULATION AND USE OF FWW, IMPULSIVE, ATTEMPT TO STAND FROM CHAIR WITHOUT CALL MULTIPLE TIME, REDIRECTABLE. PT SAT IN CHAIR FOR SEVERAL HOURS THIS SHIFT, NOW RESTING WITH EYES CLOSED IN BED, Q 2HR TURNS REQUIRED WHEN IN BED, PT NEEDS REMINDER TO REPOSITION SELF, BLANCHABLE REDNESS NOTED ON COCCYX, MEPILEX APPLIED. PT NOT EATING MEALS, REPORTS NO APPETITE, PALLIATIVE CARE RN NOTIFIED. OLVERA DRAINING LIGHT RED URINE, PT ASKED THAT IT NOT BE REMOVED DUE TO PAIN IN PENIS, WILL DISCUSS PT CONCERN WITH MD. PT EDUCATED BUT INFORMATION DID NOT STAY WITH PT. 1 PERSON ASSIST WITH FWW. PT HAD LARGE LOOSE BM,
[2024-08-31 20:30] VITALS: BP 110/96
[2024-09-01 02:54] VITALS: BP 129/68
--- NOTE | 2024-09-01 04:47 | NUR ---
SHIFT SUMMARY. NO ACUTE CHANGES NOTED THIS SHIFT. PATIENT IS A&OX2 WITH CONFUSION. PATIENT NEEDS DIRECTION AND REORIENTATION AT TIMES WITH ACTIVIY OR TASKS. PATIENT HAS RESTED WELL T/O NIGHT WITH RESPIRATIONS EQUAL AND UNLABORED. PATIENT REPOSITIONED THROUGH OUT NIGHT-MEPILEX ON BUTTOCK FOR PREVENTION. PATIENTS HAS A OLVERA CATHETER THAT IS PATENT AND DRAINING TO GRAVITY-URINE IS TEA COLORED WITH NOTED BLOOD TO URINE-PATIENT REFUSED TO HAVE OLVERA REMOVED ON DAYSHIFT-DAYSHIFT RN TO TALK WITH MD TOMORROW. BED IS LOCKED IN THE LOWEST POSITION WITH CALL LIGHT IN REACH.
[2024-09-01 06:40] LABS: Albumin, Blood 2.7 g/dL (3.4-5.0); Anion Gap 12 mmol/L (3-11); Blood Urea Nitrogen 10 mg/dL (8-24); Bun/Creatinine Ratio 15.4 (12.0-20.0); CO2, Blood 27 mmol/L (21-32); Calcium, Blood 8.3 mg/dL (8.5-10.1); Chloride, Blood 105 mmol/L (98-108); Creatinine, Blood 0.65 mg/dL (0.60-1.20); Glomerular Filtration Rate 96 (60-); Glucose, Blood 97 mg/dL (70-99); Phosphorus, Blood 3.2 mg/dL (2.5-4.9); Potassium, Blood 3.8 mmol/L (3.5-5.5); Sodium, Blood 140 mmol/L (136-145)
[2024-09-01 07:23] VITALS: BP 109/57
[2024-09-01 15:55] VITALS: BP 112/66
--- NOTE | 2024-09-01 17:51 | NUR ---
SHIFT SUMMARY PT AOX2, CONFUSED AND IMPULSIVE AT TIMES. OLVERA PLACED THIS SHIFT, PATENT AND DRAINING. HE WAS GOING TO GO HOME WITH HOME-HEALTH BUT IS NOT GOING HOME ON HOSPICE SO OLVERA PLACE AGAIN. NO COMPLAINTS TODAY. BA/CA ON. PT DOES NOT CALL. FAMILY UPDATED. REPOSITIONED THROUGHOUT THE SHIFT. CALL LIGHT WITHIIN REACH, BED LOCKED AND IN THE LOWEST POSITION. WILL REPORT TO ONCOMING NURSE.
[2024-09-01 20:14] VITALS: BP 119/72
[2024-09-02 04:44] VITALS: BP 119/67
--- NOTE | 2024-09-02 05:24 | NUR ---
SHIFT SUMMARY. PATIENT IS A&OX2-SELF AND PLACE. PATIENT IS PLEASANTLY CONFUSED. PATIENT REPOSITIONED T/O SHIFT. PATIENT HAS OLVERA IN PLACE THAT IS PATENT AND DRAINING TO GRAVITY-URINE IS TEA WITH RED TINGED URINE. PLAN IS FOR PATIENT TO DISCHARGE HOME ON HOSPICE TODAY-PER NOTES HOSPICE WAS SET UP ON 09/01/24. PATIENT REPOSITIONED THROUGHT OUT SHIFT. BED IS LOCKED IN THE LOWEST POSITION WITH CALL LIGHT IN REACH.
[2024-09-02 07:52] VITALS: BP 117/65
--- NOTE | 2024-09-02 13:45 | NUR ---
SHIFT SUMMARY AND DISCHARGE PATIENT ALERT AND INTERACTIVE BUT FORGETFUL. PATIENT DISCHARGED TO HOME WITH [facility] TO FOLLOW. DISCHARGE INSTRUCTIONS REVIEWED WITH PATIENT AND FAMILY. PATIENT DRESSED AND ASSISTED TO WHEELCHAIR. ROOM CHECK DONE BEFORE DISCHARGE. PATIENT TAKEN OUT VIA WHEELCHAIR BY TELEGRAPH LINEMAN. CATHETER REMAINS IN PLACE BECAUSE OF URINARY RETENTION.
== END 2024-09-02 13:36 | disposition hospice, home (50) | DRG 193 ==
LOC: ER 12:50 → MEDS 12:51 → ERHOLD 12:51 → MEDS 22:03
PROVIDERS: Emergency Medicine; Family Medicine; Student in an Organized Health Care Education/Training Program; ADMIT Internal Medicine
DX: J10.1 Influenza due to other identified influenza virus with other respiratory manifestations (principal); J96.01 Acute respiratory failure with hypoxia; Z78.1 Physical restraint status; Z66 Do not resuscitate; E87.6 Hypokalemia; Z28.21 Immunization not carried out because of patient refusal; G35 Multiple sclerosis; E78.5 Hyperlipidemia, unspecified; G62.9 Polyneuropathy, unspecified; K21.9 Gastro-esophageal reflux disease without esophagitis; D69.6 Thrombocytopenia, unspecified; D64.9 Anemia, unspecified; N40.0 Benign prostatic hyperplasia without lower urinary tract symptoms; Z79.82 Long term (current) use of aspirin; Z79.02 Long term (current) use of antithrombotics/antiplatelets; Z79.899 Other long term (current) drug therapy; Z87.891 Personal history of nicotine dependence; Z86.73 Personal history of transient ischemic attack (TIA), and cerebral infarction without residual deficits; Z85.51 Personal history of malignant neoplasm of bladder
CPT/HCPCS: 0241U; 36415; 51702; 70450; 71046; 80048; 80053; 80069; 80320; 81001; 83605; 83735; 83880; 84100; 84145; 85025; 87040; 93005; 93010; 94760; 96365; 96375; 97110; 97116; 97161; 97166; 97530; 97535; 99285-25; A9270; J0696; J1650; J1885; J7030